=== PATIENT | male | born 1935 | race Caucasian/White ===

== ENCOUNTER 2019-01-28 08:07 | Outpatient (CLI) | payer MEDICARE, BC ==
[2019-01-28 08:45] LABS: Estimated GFR-MDRD - POC Greater than 90
[2019-01-28] MEDS ORDERED: ISOVUE-370 76%-LOCM 1 ML ONE (10:09)
--- NOTE | 2019-01-28 10:38 | CT ---
CT ANGIO OF ABDOMEN AND PELVIS PERFORMED WITH AND WITHOUT CONTRAST ENHANCEMENT: History: Patient had abdominal aortic aneurysm repair in July about two years ago. Re-evaluation of stent. FINDINGS: Lung bases are clear of any infiltrative process. No pulmonary nodules are identified. The liver and spleen are normal in appearance. The pancreas is atrophic. Gallbladder has been removed . Right and left adrenal glands are normal in appearance. There is a punctate nonobstructing upper pole right and midpole to upper pole left renal calculus seen and a slightly larger nonobstructing approx imately 5 mm lower pole right renal calculus. There is some cortical scarring of both kidneys and romulo ateral renal cysts, the larger cyst is on the right measuring 6.3 cm. No significant periaortic or me senteric adenopathy. Moderate amount of stool is seen within the colon. The angiographic portion of this examination shows a patent celiac and superior mesenteric arteries. There is atherosclerotic disease at the origin of the left renal artery and there is both calcified a nd soft plaque with moderately severe stenosis of the origin of the right renal artery. There do appe ar to be single renal arteries bilaterally. There is an endograft present. The graft begins just belo w the level of the renal arteries. The graft has a smaller common component and long iliac components which extend to the common iliac arteries. There is some contrast leak demonstrated. This is seen po steriorly within the more distal abdominal aorta where some pooling of contrast seen posteriorly. The force of the endoleak is not clear. The aorta measures 4.[address] ANGIO PELVIS PERFORMED WITH CONTRAST: Fat containing left inguinal hernia is seen. Prostate is mildly enlarged. Sigmoid diverticulosis is p resent. No pelvic lymphadenopathy or mass. IMPRESSION: 1. 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 The ambler aor ta measures 4.7 cm in AP dimension. 2. Bilateral nonobstructing renal calculi. 3. Moderately high grade stenosis of the origin of the right renal artery. 4. Sigmoid diverticulosis. POS: [facility]
== END 2019-01-28 08:08 | disposition home or self-care (01) ==
LOC: BICCT 08:07
PROVIDERS: ATTEND Thoracic Surgery (Cardiothoracic Vascular Surgery)
DX: T82.330A Leakage of aortic (bifurcation) graft (replacement), initial encounter (principal); N20.0 Calculus of kidney; I70.1 Atherosclerosis of renal artery; K57.30 Diverticulosis of large intestine without perforation or abscess without bleeding; Z86.79 Personal history of other diseases of the circulatory system
CPT/HCPCS: 74174; 82565; Q9966

== ENCOUNTER 2019-05-16 13:29 | Emergency (ER) | payer MEDICARE, BC, OTHER ==
--- NOTE | 2019-05-16 14:35 | CT ---
CT BRAIN WITHOUT CONTRAST: HISTORY: Fall, head trauma. FINDINGS: There is a 1.5 cm low-density focal area in the right cerebellum. No hemorrhage, midline shift, or a bnormal extraaxial fluid collection is seen. There are changes of cortical atrophy and chronic small -vessel ischemic disease. The ventricular size is appropriate and the basilar cisterns are patent. The bony calvarium is intact. There is a soft tissue contusion in the left frontal region. IMPRESSION: Low-density lesion in the right cerebellar hemisphere. Infarct versus mass. Further evaluation with contrast-enhanced MRI is recommended. POS: [facility]
[2019-05-16 14:45] LABS: #Eosinphils 0.3 thou/uL (0.0-0.7); #Lymphocytes 1.5 thou/uL (1.20-3.40); #Monocytes 0.3 thou/uL (0.11-0.59); #Neutrophils 3.7 thou/uL (1.40-6.50); %Basophils 0.8 % (0.0-1.0); %Eosinophils 4.7 % (0.0-10.0); %Lymphocytes 25.9 % (21.0-51.0); %Monocytes 5.2 % (0.0-10.0); %Neutrophils 63.4 % (42.0-75.0); Hemoglobin 12.8 g/dL (14.0-18.0); Mean Corpuscular HGB CONC 33.3 g/dL (32.0-36.0); Mean Corpuscular Hemoglobin 29.6 pg (27.0-31.0); Mean Corpuscular Volume 88.8 fL (78.0-98.0); Mean Platelet Volume 6.5 fL (7.4-10.4); Platelet Count 214 thou/uL (130-400); RBC Distribution Width 12.6 % (11.5-14.5); Red Blood Cell (RBC) Count 4.32 mill/uL (4.70-6.10); White Blood Cell (WBC) Count 5.9 thou/uL (4.8-10.8)
[2019-05-16 14:59] LABS: ALT (SGPT) 14 U/L (8-55); AST (SGOT) 12 U/L (5-34); Albumin 3.8 g/dL (3.4-4.8); Alkaline Phosphatase 93 U/L (40-150); Anion Gap 13 mmol/L (10-20); BUN (Urea Nitrogen) 17 mg/dL (8.4-25.7); Bilirubin, Total 0.5 mg/dL (0.2-1.2); Calc. Creatinine Clearance 0 mL/min (70-130); Calcium 9.6 mg/dL (7.8-10.44); Carbon Dioxide 29 mmol/L (23-31); Chloride 103 mmol/L (98-107); Estimated GFR-MDRD 64; Globulin 3.1 g/dL (2.4-3.5); Glucose 197 mg/dL (83-110); Potassium 4.4 mmol/L (3.5-5.1); Protein, Total 6.9 g/dL (5.8-8.1); Sodium 141 mmol/L (136-145)
--- NOTE | 2019-05-16 15:02 | CT ---
CT FACIAL BONES WITH CORONAL AND SAGITTAL REFORMATIONS: HISTORY: Fall, trauma to the face. FINDINGS/IMPRESSION: No acute facial bone fracture is seen. No temporomandibular dislocation is identified. No air fluid levels are seen in the paranasal sinuses. Mild mucosal disease is noted. POS: [facility]
== END 2019-05-16 15:30 | disposition home or self-care (01) ==
LOC: SCSER 13:29
DX: S00.33XA Contusion of nose, initial encounter (principal); E11.9 Type 2 diabetes mellitus without complications; Z79.84 Long term (current) use of oral hypoglycemic drugs; Z79.899 Other long term (current) drug therapy; W01.0XXA Fall on same level from slipping, tripping and stumbling without subsequent striking against object, initial encounter
CPT/HCPCS: 36415; 70450; 70486; 80053; 85025

== ENCOUNTER 2019-07-07 08:55 | Outpatient (CLI) | payer MEDICARE, BC, OTHER ==
--- NOTE | 2019-07-08 18:34 | RAD ---
MODIFIED BARIUM SWALLOW IN THE PRESENCE OF A SPEECH PATHOLOGIST: Date: 07/07/19 HISTORY: Dysphagia, unspecified. Feeding difficulties. COMPARISON: None. FINDINGS: In the presence of a speech pathologist, the patient was administered puree, thin liquid, mechanical soft consistencies, as well as a barium tablet/capsule. There is premature spillage to the level of the vallecula. No evidence of penetration or aspiration. Please refer to speech pathologist's report for feeding recommendation. IMPRESSION: Please refer to speech pathologist's report for feeding recommendations. POS: [facility]
== END 2019-07-07 08:56 | disposition home or self-care (01) ==
PROVIDERS: ATTEND Internal Medicine
DX: R13.10 Dysphagia, unspecified (principal); R63.3 Feeding difficulties
CPT/HCPCS: 74230